=== PATIENT | male | born 1975 | race Caucasian/White ===

== ENCOUNTER 2016-03-24 04:45 | Emergency (ER) | payer BC, OTHER ==
[2016-03-24 05:01] VITALS: TEMP 97.4
[2016-03-24] MEDS ORDERED: KETOROLAC TROMETHAMINE INJ 30 MG/ML VIAL IV ONE (05:03)
[2016-03-24] MEDS ORDERED: ONDANSETRON INJ 4 MG/2 ML VIAL IV ONE (05:03)
--- NOTE | 2016-03-24 05:06 | ED.PDOC ---
History of Present Illness - General Chief Complaint: Problem Stated Complaint: kidney stones Time Seen by Provider: 03/24/16 04:59 Source: patient, RN notes reviewed, Vital Signs reviewed, family Exam Limitations: no limitations - History of Present Illness Initial Comments: Patient started with R flank pain ~2 hours ago. +N/V. Hx of kidney stones and thinks he has another. Timing/Duration: constant, other - 2 hours Quality: severe, steady Onset Location: right flank Radiation: none Activites at Onset: rest Prior abdominal problems: similar symptoms Sexual intercourse history: single partner Improving Factors: nothing Worsening Factors: nothing Associated Symptoms: nausea/vomiting Allergies/Adverse Reactions: Allergies NO KNOWN ALLERGY Allergy (Unverified 02/17/14 23:57) Home Medications: Ambulatory Orders Acetamin W/Cod #3 Tab [Tylenol w/CODEINE #3] 2 ea PO Q4HR PRN #20 tab 03/24/16 Ondansetron [Zofran Odt] 8 mg PO Q6HRS PRN #20 tab 03/24/16 Review of Systems - Review of Systems Constitutional: States: no symptoms reported. Denies: chills, diaphoresis, fever, malaise, weakness Respiratory: States: no symptoms reported Cardiology: States: no symptoms reported Gastrointestinal/Abdominal: States: nausea, vomiting. Denies: abdominal pain, constipation, diarrhea Genitourinary: States: no symptoms reported. Denies: dysuria, frequency, hematuria, pain Musculoskeletal: States: back pain - R flank. Denies: muscle pain, neck pain Skin: States: no symptoms reported Neurological: States: no symptoms reported. Denies: headache Endocrine: States: no symptoms reported Hematologic/Lymphatic: States: no symptoms reported Past Medical History (General) - Patient Medical History Hx Seizures: No Hx Stroke: No Hx Dementia: No Hx Asthma: No Hx of COPD: No Hx Cardiac Disorders: No Hx Congestive Heart Failure: No Hx Pacemaker: No Hx Hypertension: No Hx Thyroid Disease: No Hx Diabetes: No Hx Gastroesophageal Reflux: No Hx Renal Disease: No Hx Cancer: No Hx of HIV: No Hx Hepatitis C: No Hx MRSA: No - Vaccination History Hx Influenza Vaccination: Yes - Social History Hx Tobacco Use: No Hx Alcohol Use: Yes Hx Depression: No - Triage Comment ED Triage Comment: Pt states he has kidney stones c/o right flank pain that started approx 2 hrs ago. Hx of kidney stones. Family Medical History - Family History Father Living Status: Still Living Physical Exam - Physical Exam General Appearance: Agitated, Obvious distress, Restless, Well Developed, Well Groomed, Well Hydrated, Well Nourished Neck: non-tender, full range of motion, supple Cardiovascular/Respiratory: regular rate, rhythm, no M/R/G, no JVD, normal breath sounds, no respiratory distress Gastrointestinal/Abdominal: normal bowel sounds, non tender, soft, no organomegaly, no pulsatile mass Back Exam: CVA tenderness (R) Extremity: normal range of motion, non-tender, normal inspection, no pedal edema Neurologic: no motor/sensory deficits, alert, normal mood/affect, oriented x 3 Skin Exam: normal color, warm/dry Lymphatic: no adenopathy Progress - Progress Progress: 03/24/16 06:09 Pain eased after the Toradol but is coming back and is now 6/10. Will add Dilaudid and a L of NS. 03/24/16 06:44 Patient reports his pain is back up to 7/10 and he is nauseated again. Will add Phenergan and give another dose of Dilaudid. 03/24/16 06:59 Pain is down to 3/10 and nausea is controlled. - Results/Orders Results/Orders: Laboratory Tests 03/24/16 03/24/16 04:54 05:03 WBC 8.8 RBC 5.12 Hgb 14.7 Hct 43.9 MCV 85.8 MCH 28.7 MCHC 33.4 RDW 13.5 Plt Count 246 MPV 8.3 Absolute Neuts (auto) 4.30 Absolute Lymphs (auto) 3.40 Absolute Monos (auto) 0.70 Absolute Eos (auto) 0.50 H Absolute Basos (auto) 0.00 Neutrophils % 48.1 Lymphocytes % 38.1 Monocytes % 7.9 Eosinophils % 5.4 H Basophils % 0.5 Sodium 140 Potassium 4.0 Chloride 106 Carbon Dioxide 26 Anion Gap 12.0 BUN 15 Creatinine 1.17 BUN/Creatinine Ratio 12.8 Random Glucose 121 H Serum Osmolality 281.5 Calcium 9.3 Total Bilirubin 0.8 AST 30 ALT 36 Alkaline Phosphatase 59 Serum Total Protein 7.2 Albumin 4.1 Globulin 3.1 Albumin/Globulin Ratio 1.3 Urine Color Yellow Urine Appearance Sl cloudy Urine pH 5.0 Ur Specific [place] >= 1.030 Urine Protein Negative Urine Glucose (UA) Negative Urine Ketones Negative Urine Blood Large H Urine Nitrite Negative Urine Bilirubin Negative Urine Urobilinogen 0.2 Ur Leukocyte Esterase Negative Urine RBC Tntc H Urine WBC 0-1 Ur Epithelial Cells 0 Urine Bacteria 0 Urine Mucus Trace - EKG/XRAY/CT CT Ordered: Yes - 2mm obstructing stone in R distal ureter w/ mild hydroneph/ hydroureter. Departure - Departure Clinical Impression: Kidney stone on right side Time of Disposition: 07:00 Disposition: Discharge to Home or Self Care Condition: Good Departure Forms: ED Discharge - Pt. Copy, Patient Portal Self Enrollment Instructions: DI for Kidney Stones Diet: resume usual diet Activity: increase activity as tolerated Referrals: Jayy Dunn III, MD [Primary Care Provider] - 1-2 Weeks Prescriptions: Acetamin W/Cod #3 Tab [Tylenol w/CODEINE #3] 2 ea PO Q4HR PRN #20 tab PRN Reason: Moderate To Severe Pain Ondansetron [Zofran Odt] 8 mg PO Q6HRS PRN #20 tab PRN Reason: Nausea/Vomiting Home Medications: Ambulatory Orders Acetamin W/Cod #3 Tab [Tylenol w/CODEINE #3] 2 ea PO Q4HR PRN #20 tab 03/24/16 Ondansetron [Zofran Odt] 8 mg PO Q6HRS PRN #20 tab 03/24/16
--- NOTE | 2016-03-24 06:05 | CT ---
EXAM DESCRIPTION: CT ABDOMEN PELVIS WITHOUT IV CONTRAST 03/24/2016 5:54 AM CLINICAL HISTORY: 40 y/o , M, R flank pain/ hx of kidney stones COMPARISON: None. TECHNIQUE: Volumetric CT acquisition was performed through the abdomen and pelvis. Images in the axial and coronal planes were presented for interpretation FINDINGS: The visualized portions of the lung bases are clear. The cardiomediastinal structures are within normal limits. Within the upper abdomen, the liver and spleen are normal in size and morphology. The gallbladder is normal in size with multiple radiodense gallstones in the dependent portion of the gallbladder best seen on axial image 30. The intra/extrahepatic biliary tree is normal in appearance. The pancreas and adrenal glands are normal. The right kidney is edematous and enlarged. There is a 2 mm partially obstructing stone in the distal right ureter on axial image 86. There is mild right-sided hydronephrosis and hydroureter. There are no additional right renal calculi or ureteral stones. The left kidney is normal in size in the left ureter is normal in course and caliber. There are at least 2 punctate nonobstructing stones in the mid and inferior pole of the left renal collecting system best seen on coronal image 94 and 85. The stomach and small intestines are within normal limits without evidence of bowel dilation or wall thickening. The appendix is well visualized and normal, best seen on axial image 60 posterior to the cecum. The colon is stool filled and unremarkable. Within the pelvis, the bladder and rectum are normal. The prostate is age-appropriate. There are no pathologically enlarged inguinal, retroperitoneal, portacaval, or mesenteric lymph nodes. The soft tissue structures of the abdominal wall are normal. The visualized osseous structures are within normal limits for the patient's age. The abdominal aorta and its primary branches are normal in course and caliber. Limited evaluation of the venous structures demonstrates no gross abnormalities. IMPRESSION: 1. Partially obstructing 2 mm distal right ureteral stone. 2. Additional nonobstructing left renal calculi. 3. Cholelithiasis without evidence of cholecystitis. Electronically signed by: Stephanie Branham MD 03/24/2016 06:03
[2016-03-24] MEDS ORDERED: HYDROmorphone HCL INJ 2 MG/ML VIAL IV ONE ×2 (06:08→06:45)
[2016-03-24] MEDS ORDERED: SODIUM CHLORIDE 0.9% 1000ML 1,000 ML IVS ONE (06:11)
[2016-03-24] MEDS ORDERED: PROMETHAZINE HCL INJ 12.5 MG in SODIUM CHLORIDE 0.9% 50ML 50 ML IVPB ONE (06:45)
[2016-03-24] MEDS ORDERED: PROMETHAZINE HCL INJ 25 MG/ML VIAL ONE (06:52)
[2016-03-24] MEDS ORDERED: SODIUM CHLORIDE 0.9% 50ML 50 ML ONE (06:53)
[2016-03-24 09:27] VITALS: BP 128/74; O2SAT 98
== END 2016-03-24 09:05 | disposition home or self-care (01) ==
LOC: ER 04:45
DX: N13.2 Hydronephrosis with renal and ureteral calculous obstruction (principal)
CPT/HCPCS: 74176; 80053; 81001; 85025; A4216; J1170; J1885; J2405; J2550; J7030

== ENCOUNTER 2017-03-18 19:52 | Emergency (ER) | payer BC, OTHER ==
[2017-03-18 20:17] VITALS: TEMP 97.9
[2017-03-18] MEDS ORDERED: CHLORHEXIDINE GLUCONATE 4 % 15 ML UD TOP ONE (20:36)
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
[2017-03-18] MEDS ORDERED: AMOXICILLIN 500 MG CAP PO ONE (20:41)
[2017-03-18] MEDS ORDERED: NEOMYCIN-BACITRACIN-POLYMYXIN 0.9 GM UD TOP ONE (20:46)
[2017-03-18 21:20] VITALS: BP 115/72
== END 2017-03-18 21:20 | disposition home or self-care (01) ==
LOC: ER 19:52
DX: S61.052A Open bite of left thumb without damage to nail, initial encounter (principal); Y04.1XXA Assault by human bite, initial encounter; Y35.891A Legal intervention involving other specified means, law enforcement official injured, initial encounter; Y92.9 Unspecified place or not applicable; Y99.0 Civilian activity done for income or pay

== ENCOUNTER → 2018-04-02 | Outpatient (CLI) | payer BC | LOC: YCFC.O 13:27 | PROVIDERS: ATTEND Family Medicine | DX: J06.9 Acute upper respiratory infection, unspecified (principal) ==